=== PATIENT | male | born 1965 | race Caucasian/White ===

== ENCOUNTER 2020-06-23 07:34 | Outpatient (CLI) | payer OTHER | END 2020-06-23 14:01 | disposition home or self-care (01) | LOC: TOM 07:34 | DX: K57.92 Diverticulitis of intestine, part unspecified, without perforation or abscess without bleeding (principal) ==

== ENCOUNTER 2021-01-12 22:32 | Emergency (ER) | payer OTHER ==
[~2021-01-12] VITALS: Ht 177.8 cm; Wt 78.5 kg
[2021-01-12] MEDS ORDERED: FORTAMET500 MG (22:54)
[2021-01-12] MEDS ORDERED: LISINOPRIL10 MG (22:55)
== END 2021-01-12 23:27 | disposition home or self-care (01) ==
LOC: ER 22:32
DX: H66.92 Otitis media, unspecified, left ear (principal)

== ENCOUNTER → 2021-02-03 | Outpatient (CLI) | payer OTHER ==
[~2021-02-03] MED LIST: FORTAMET500 MG; LISINOPRIL10 MG
== END | disposition home or self-care (01) ==
LOC: PPH VACUNA
DX: Z23 Encounter for immunization (principal)

== ENCOUNTER → 2021-02-24 15:00 | Outpatient (CLI) | payer OTHER | END | disposition home or self-care (01) | LOC: PPH VACUNA 15:00 | DX: Z23 Encounter for immunization (principal) ==

== ENCOUNTER 2021-06-24 07:26 | Outpatient (CLI) | payer OTHER | END 2021-06-24 07:29 | disposition home or self-care (01) | LOC: NUCLEAR 07:26 | PROVIDERS: ATTEND General Practice | DX: I77.89 Other specified disorders of arteries and arterioles (principal); I87.2 Venous insufficiency (chronic) (peripheral) ==

== ENCOUNTER → 2021-08-19 | Outpatient (CLI) | payer OTHER | END | disposition home or self-care (01) | LOC: NUCLEAR 08:00 | PROVIDERS: ATTEND Internal Medicine | DX: I38 Endocarditis, valve unspecified (principal) ==

== ENCOUNTER 2021-08-28 11:55 | Outpatient (CLI) | payer OTHER | END 2021-08-28 12:10 | disposition home or self-care (01) | LOC: PPH VACUNA 11:55 | PROVIDERS: ATTEND Emergency Medicine Pediatric Emergency Medicine | DX: Z23 Encounter for immunization (principal) ==

== ENCOUNTER → 2021-08-28 | Outpatient (CLI) | payer OTHER | END | disposition home or self-care (01) | LOC: NUCLEAR 07:00 | PROVIDERS: ATTEND Internal Medicine | DX: I20.9 Angina pectoris, unspecified (principal) | CPT/HCPCS: 78452; 93017; A9500 ==

== ENCOUNTER 2021-11-28 13:44 | Emergency (ER) | payer OTHER ==
[~2021-11-28] VITALS: Ht 177.8 cm; Wt 77.1 kg
[2021-11-28] MEDS ORDERED: LEVOTHYROXINE100 MCG PO (14:39)
== END 2021-11-28 16:46 | disposition home or self-care (01) ==
LOC: ER 13:44
DX: U07.1 COVID-19 (principal); I10 Essential (primary) hypertension; E11.9 Type 2 diabetes mellitus without complications; Z79.84 Long term (current) use of oral hypoglycemic drugs

== ENCOUNTER 2021-12-03 11:10 | Outpatient (CLI) | payer OTHER ==
[~2021-12-03 11:10] MED LIST changes: +LEVOTHYROXINE100 MCG PO
== END 2021-12-03 11:58 | disposition home or self-care (01) ==
LOC: ASH CLINIC 11:10
PROVIDERS: ATTEND General Practice
DX: U07.1 COVID-19 (principal); Z23 Encounter for immunization

== ENCOUNTER 2023-08-07 12:48 | Emergency (ER) | payer OTHER ==
[~2023-08-07] VITALS: Ht 177.8 cm; Wt 77.1 kg
[2023-08-07] MEDS ORDERED: TAMS0.4C PO (13:49)
[2023-08-07 15:14] LABS: HEMATOCRIT 44.3 % (39.0-48.0); HEMOGLOBIN 15.6 g/dL (13-16.00); MEAN CELL VOLUME 85.5 fL (80.0-100.00); MEAN CORPUSCULAR HEMOGLOBIN 30.1 pg (27.00-32.0); MEAN CORPUSCULAR HGB CONC 35.2 g/dl (32.0-36.0); PLATELET COUNT 279 K/uL (150-450); RED BLOOD COUNT 5.18 M/uL (4.00-6.00); RED CELL DISTRIBUTION WIDTH 14.1 % (11.5-14.5)
== END 2023-08-07 21:58 | disposition home or self-care (01) ==
LOC: ER 12:48
PROVIDERS: Emergency Medicine
DX: K52.9 Noninfective gastroenteritis and colitis, unspecified (principal); A08.8 Other specified intestinal infections; E11.9 Type 2 diabetes mellitus without complications; Z79.84 Long term (current) use of oral hypoglycemic drugs; I10 Essential (primary) hypertension; E03.9 Hypothyroidism, unspecified; N40.0 Benign prostatic hyperplasia without lower urinary tract symptoms; E78.00 Pure hypercholesterolemia, unspecified; Z20.822 Contact with and (suspected) exposure to COVID-19

== ENCOUNTER → 2025-01-09 | Outpatient (CLI) | payer OTHER ==
[~2025-01-09] MED LIST changes: +TAMS0.4C PO
== END | disposition home or self-care (01) ==
LOC: TOM 07:07
DX: K57.92 Diverticulitis of intestine, part unspecified, without perforation or abscess without bleeding (principal); K46.9 Unspecified abdominal hernia without obstruction or gangrene

== ENCOUNTER 2025-06-26 11:07 | Emergency (ER) | payer OTHER ==
[~2025-06-26] VITALS: Ht 177.8 cm; Wt 76.2 kg
[2025-06-26 11:18] VITALS: BP 155/88; O2SAT 95
[2025-06-26] MEDS ORDERED: AZITHROMYCIN 500 MG TABLET PO ONE ×2 (11:23→11:30)
[2025-06-26] MEDS ORDERED: GUAIFEN/DEXTROMETHORPHAN/PE 10 ML BLIST.PACK PO ONE (11:23)
[2025-06-26] MEDS ORDERED: DEXAMETHASONE SODIUM PHOSPHATE 4 MG/ML VIAL ONE (11:23)
[2025-06-26] MEDS ORDERED: DEXAMETHASONE SODIUM PHOSPHATE 4 MG/ML VIAL IM ONE (11:30)
[2025-06-26] MEDS ORDERED: GUAIFENESIN/DEXTROMETHORPHAN 100MG/10ML BLIST.PACK PO ONE (11:30)
[2025-06-26 11:47] LABS: BASO % 0.2 % (0.1-1.2); EOS # 0.09 (0.04-0.54); EOS % 1.4 % (0.7-7.0); LYMPH # 1.38 (1.18-3.74); LYMPH % 22.0 % (19.3-53.1); MEAN PLATELET VOLUME 10.30 fl (9.4-12.4); MONO # 0.87 (0.24-0.82); NEUT # 3.90 (1.56-6.13); NEUT % 62.2 % (34.0-71.1); RED CELL DISTRIBUTION WIDTH 12.8 % (11.6-14.4)
[2025-06-26 11:59] LABS: MONO % 13.9 % (4.7-12.5)
[2025-06-26 12:25] LABS: COVID-19 AG NEGATIVE (NEGATIVE)
[2025-06-26] MEDS ORDERED: TUSNEL LIQUID178 ML PO (13:24)
[2025-06-26] MEDS ORDERED: ZITHROMAX500 MG PO (13:24)
[2025-06-26] MEDS ORDERED: ZYRTEC10 M3 PO (13:24)
== END 2025-06-26 13:42 | disposition home or self-care (01) ==
LOC: ER 11:14
PROVIDERS: General Practice
DX: J06.9 Acute upper respiratory infection, unspecified (principal); Z20.822 Contact with and (suspected) exposure to COVID-19